=== PATIENT | male | born 1960 | race Caucasian/White ===

== ENCOUNTER → 2021-01-09 | Outpatient (CLI) | payer OTHER | LOC: US 16:00 | DX: M79.651 Pain in right thigh (principal); M25.551 Pain in right hip; M25.552 Pain in left hip; M25.561 Pain in right knee; M25.562 Pain in left knee; M17.0 Bilateral primary osteoarthritis of knee; M16.0 Bilateral primary osteoarthritis of hip; D16.22 Benign neoplasm of long bones of left lower limb | CPT/HCPCS: 73522; 73562; 93971 ==

== ENCOUNTER → 2021-11-15 | Outpatient (CLI) | payer OTHER | LOC: HEART 5 07:42 | DX: I65.23 Occlusion and stenosis of bilateral carotid arteries (principal); I11.9 Hypertensive heart disease without heart failure; I77.819 Aortic ectasia, unspecified site; I35.8 Other nonrheumatic aortic valve disorders | CPT/HCPCS: 93306; 93880 ==

== ENCOUNTER → 2021-12-26 | Outpatient (CLI) | payer OTHER | LOC: CT 10:49 | DX: I77.810 Thoracic aortic ectasia (principal) | CPT/HCPCS: 71275; 82565; 84520; Q9967 ==